=== PATIENT | female | born 2000 | race Caucasian/White ===

== ENCOUNTER 2018-08-21 14:31 | Emergency (ER) | payer BC, MEDICAID ==
[~2018-08-21] VITALS: Ht 160 cm; Wt 61.4 kg
[2018-08-21 14:32] VITALS: BP 119/70
[2018-08-21] MEDS ORDERED: KEPP1SOL PO (14:39)
[2018-08-21] MEDS ORDERED: LAMO10TA PO (14:39)
[2018-08-21] MEDS ORDERED: LIDOCAINE W/EPINEPHRINE 1% 20ML VIAL SC ONE (15:45)
[2018-08-21] MEDS ORDERED: DOXY100C37 PO (15:58)
== END 2018-08-21 16:10 | disposition home or self-care (01) ==
LOC: M ED 14:31
DX: L02.214 Cutaneous abscess of groin (principal)

== ENCOUNTER 2018-09-04 16:39 | Emergency (ER) | payer BC, MEDICAID ==
[~2018-09-04] VITALS: Ht 160 cm; Wt 59.1 kg
[~2018-09-04 16:39] MED LIST: DOXY100C37 PO; KEPP1SOL PO; LAMO10TA PO
[2018-09-04 16:40] VITALS: BP 117/72
[2018-09-04] MEDS ORDERED: metroNIDAZOLE (FLAGYL) 500 MG TAB PO ONE (17:45)
--- NOTE | 2018-09-04 18:50 | REP ---
First trimester obstetric sonography: History: Vaginal bleeding. Transabdominal and transvaginal scanning are performed. There is an intrauterine gestational sac containing a yolk sac but no discernible embryonic pole. By mean sac size diameter of 9.6 mm this would correspond with a 9-pqdt-3-day gestation. No motion or cardiac motion observed. There is a 2.2 cm hypoechoic cyst in the right ovary. Right ovary measures 3.5 x 2.9 x 3.1 cm. Left ovarian dimensions are 3.4 x 1.9 x 2.0 cm. Doppler flow is normal to both ovaries, resistive indices are 0.52 on the right and 0.70 on the left. Impression: Intrauterine gestational sac with yolk sac but no embryonic pole. viability cannot be confirmed. Clinical and possibly sonographic followup is recommended. 0-duwv-3-day size by sac size diameter. No free fluid or adnexal mass. Electronically Signed by Amado Sim MD 09/04/2018 06:58 P
[2018-09-04] MEDS ORDERED: CEPH500T PO (19:23)
[2018-09-04] MEDS ORDERED: KEFL500C17 PO (19:23)
[2018-09-04] MEDS ORDERED: METR-201 PO (19:23)
[2018-09-04] MEDS ORDERED: CEPHALEXIN 500 MG CAP PO ONE (19:30)
[2018-09-04 20:02] LABS: CHLAMYDIA DNA AMPLIFICATION POSITIVE (NEGATIVE); GC DNA AMPLIFICATION NEGATIVE (NEGATIVE)
== END 2018-09-04 19:46 | disposition home or self-care (01) ==
LOC: M ED 16:39
DX: O20.0 Threatened abortion (principal); O23.41 Unspecified infection of urinary tract in pregnancy, first trimester; O99.331 Smoking (tobacco) complicating pregnancy, first trimester; F17.200 Nicotine dependence, unspecified, uncomplicated; Z3A.01 Less than 8 weeks gestation of pregnancy; Z86.69 Personal history of other diseases of the nervous system and sense organs; Z88.0 Allergy status to penicillin; Z88.2 Allergy status to sulfonamides; Z88.1 Allergy status to other antibiotic agents; Z79.899 Other long term (current) drug therapy

== ENCOUNTER 2018-09-09 19:16 | Emergency (ER) | payer BC, MEDICAID ==
[~2018-09-09] VITALS: Ht 160 cm; Wt 61.4 kg
[~2018-09-09 19:16] MED LIST changes: +CEPH500T PO; +KEFL500C17 PO; +METR-201 PO
[2018-09-09] MEDS ORDERED: NORCOTAB PO (21:40)
[2018-09-09] MEDS ORDERED: CLEO300C2 PO (21:40)
[2018-09-09] MEDS ORDERED: NORCO 5/325MG TABLET (BULK FOR ED) PO ONE (21:45)
[2018-09-09] MEDS ORDERED: CLINDAMYCIN 150 MG CAP PO ONE (21:45)
[2018-09-09 21:52] VITALS: BP 106/55
== END 2018-09-09 22:23 | disposition home or self-care (01) ==
LOC: M ED 19:16
DX: L02.415 Cutaneous abscess of right lower limb (principal); Z88.0 Allergy status to penicillin; Z88.2 Allergy status to sulfonamides; Z79.899 Other long term (current) drug therapy

== ENCOUNTER 2018-09-16 12:14 | Emergency (ER) | payer BC, MEDICAID ==
[~2018-09-16] VITALS: Ht 160 cm; Wt 60.3 kg
[~2018-09-16 12:14] MED LIST changes: +CLEO300C2 PO; +NORCOTAB PO
[2018-09-16 13:02] LABS: BASO # 0.1 10^3/uL (0.0-0.2); BASO % 0.7 % (0.0-1.0); EOS # 0.1 10^3/uL (0.0-0.50); LYMPH # 2.9 10^3/uL (1.5-6.5); LYMPH % 23.7 % (24.0-44.0); MEAN CORPUSCULAR HEMOGLOBIN 28.3 pg (27.0-33.0); MEAN CORPUSCULAR HGB CONC 31.8 g/dl (32.0-36.5); MEAN CORPUSCULAR VOLUME 89.1 fl (80.0-96.0); MONO # 0.7 10^3/uL (0.0-0.8); MONO % 5.5 % (0.0-5.0); NEUTROPHILS # 8.3 10^3/uL (1.8-7.7); NEUTROPHILS % 68.4 % (36.0-66.0); PLATELET COUNT, AUTOMATED 321 10^3/uL (150-450); RED BLOOD COUNT 4.94 10^6/uL (4.00-5.40); WHITE BLOOD COUNT 12.1 10^3/uL (4.0-10.0)
[2018-09-16] MEDS ORDERED: AZITHROMYCIN 250 MG TAB PO ONE (13:15)
[2018-09-16] MEDS ORDERED: ONDANSETRON 4 MG ORAL DISINTEGRATING TAB (Q0162 PER 1MG) PO ONE (13:15)
--- NOTE | 2018-09-16 13:49 | REP ---
Clinical: Cramping. Dating and viability. Technique: Transabdominal first trimester obstetrical ultrasound with color Doppler evaluation. Findings: Single live early intrauterine is appreciated. Gestational sac with yolk sac and pole identified. [place]-rump length of 11 mm corresponds to 7 weeks 2 days gestational age with estimated date of delivery 05/03/2019 . heart rate equals 133 beats per minute. No gross abnormalities are identified. Maternal ovaries are normal in appearance and vascularity without torsion. Right corpus luteal cyst noted. Impression: Single live early intrauterine at 7 weeks 2 days gestational age. Complete anatomical assessment should be performed and 19-20 weeks. Electronically Signed by Rosendo Whitaker MD 09/16/2018 01:40 P
[2018-09-16 14:06] LABS: BLOOD UREA NITROGEN 6 MG/DL (7-18); CALCIUM LEVEL 9.1 MG/DL (8.5-10.1); CARBON DIOXIDE LEVEL 26 MEQ/L (21-32); CHLORIDE LEVEL 105 MEQ/L (98-107); CREATININE FOR GFR 0.55 MG/DL (0.55-1.30); GLUCOSE, FASTING 104 MG/DL (70-100); HCG, SERUM QUANTITATIVE 74752 MIU/ML; POTASSIUM SERUM 4.4 MEQ/L (3.5-5.1); SODIUM LEVEL 138 MEQ/L (136-145)
[2018-09-16 14:22] VITALS: BP 106/60
[2018-09-16] MEDS ORDERED: COMPCHW PO (14:27)
[2018-09-16 14:43] LABS: CHLAMYDIA DNA AMPLIFICATION POSITIVE (NEGATIVE); GC DNA AMPLIFICATION NEGATIVE (NEGATIVE)
== END 2018-09-16 14:44 | disposition home or self-care (01) ==
LOC: M ED 12:14
DX: O98.311 Other infections with a predominantly sexual mode of transmission complicating pregnancy, first trimester (principal); A56.09 Other chlamydial infection of lower genitourinary tract; Z3A.01 Less than 8 weeks gestation of pregnancy; Z88.0 Allergy status to penicillin; Z88.1 Allergy status to other antibiotic agents; Z88.2 Allergy status to sulfonamides; Z88.8 Allergy status to other drugs, medicaments and biological substances; F17.210 Nicotine dependence, cigarettes, uncomplicated
CPT/HCPCS: 36415; 76801; 80048; 84702; 85025; 86900; 86901; 87210; 87491; 87591; 99283; Q0162

== ENCOUNTER 2018-10-06 14:51 | Emergency (ER) | payer BC ==
[~2018-10-06] VITALS: Ht 160 cm; Wt 61.4 kg
[~2018-10-06 14:51] MED LIST changes: +COMPCHW PO
[2018-10-06 16:17] VITALS: BP 118/67
[2018-10-11 10:15] LABS: LAMOTRIGINE (LAMICTAL) 3.8 ug/mL (2.0-20.0); LEVETIRACETAM (KEPPRA) 8.9 ug/mL (10.0-40.0)
== END 2018-10-06 16:19 | disposition home or self-care (01) ==
LOC: M ED 14:51
DX: O99.351 Diseases of the nervous system complicating pregnancy, first trimester (principal); G40.909 Epilepsy, unspecified, not intractable, without status epilepticus; O99.331 Smoking (tobacco) complicating pregnancy, first trimester; F17.210 Nicotine dependence, cigarettes, uncomplicated; Z3A.10 10 weeks gestation of pregnancy; Z88.1 Allergy status to other antibiotic agents; Z88.2 Allergy status to sulfonamides; Z79.899 Other long term (current) drug therapy

== ENCOUNTER → 2018-10-12 | Outpatient (CLI) | payer BC, MEDICAID ==
[2018-10-12 18:21] LABS: BASO # 0.1 10^3/uL (0.0-0.2); BASO % 0.5 % (0.0-1.0); EOS # 0.1 10^3/uL (0.0-0.50); EOS % 0.8 % (0.0-3.0); HEMATOCRIT 39.1 % (36.0-47.0); HEMOGLOBIN 12.9 g/dl (12.0-15.5); LYMPH % 18.5 % (24.0-44.0); MEAN CORPUSCULAR HEMOGLOBIN 29.5 pg (27.0-33.0); MEAN CORPUSCULAR VOLUME 89.5 fl (80.0-96.0); MONO # 0.6 10^3/uL (0.0-0.8); MONO % 5.9 % (0.0-5.0); NEUTROPHILS % 73.7 % (36.0-66.0); PLATELET COUNT, AUTOMATED 297 10^3/uL (150-450); RED BLOOD COUNT 4.37 10^6/uL (4.00-5.40); WHITE BLOOD COUNT 10.8 10^3/uL (4.0-10.0)
[2018-10-12 20:35] LABS: CHLAMYDIA DNA AMPLIFICATION NEGATIVE (NEGATIVE); GC DNA AMPLIFICATION NEGATIVE (NEGATIVE)
[2018-10-13 10:51] LABS: HEPATITIS C VIRUS ABY INDEX < 0.0 INDEX (<0.8); HIV 1&2 SCREEN CENTAUR NEGATIVE (NEGATIVE); RUBELLA IgG QUALITATIVE IMMUNE (IMMUNE)
== END ==
LOC: M SMT 13:47
PROVIDERS: ATTEND Advanced Practice Midwife
DX: Z34.81 Encounter for supervision of other normal pregnancy, first trimester (principal); Z3A.01 Less than 8 weeks gestation of pregnancy

== ENCOUNTER → 2018-10-17 | Outpatient (CLI) | payer BC, MEDICAID | LOC: M SMT 10:26 | PROVIDERS: ATTEND Advanced Practice Midwife | DX: Z34.81 Encounter for supervision of other normal pregnancy, first trimester (principal) ==

== ENCOUNTER 2019-03-09 13:28 | Outpatient (CLI) | payer BC, MEDICAID ==
[~2019-03-09] VITALS: Ht 160 cm; Wt 70.9 kg
[~2019-03-09 13:28] MED LIST changes: +HYDR-3715 PO; +LAMO100T80 PO; -LAMO10TA PO; -METR-201 PO; +METR-265 PO; -NORCOTAB PO
[2019-03-09 16:06] VITALS: BP 105/63
--- NOTE | 2019-03-09 16:29 | IPNPDOC ---
Text Note Date of Service The patient was seen on 03/09/19. NOTE Outpatient 18yo SAW 05/02/19 by first trimester sono. Presents @ 32w2d with reports of LOF today, clear. Reports irregular cramping. Pt initiated care @ [facility] first trimester. Transferred to [facility] during 2nd trimester. They have assigned her SAW as 04/25/19 based on LMP and 2nd trimester sono. NAD Cat I tracing, no UC SSE neg pool, neg valsalva, neg nitrazine, neg fern. Moderate creamy white vaginal discharge SVE parous, LTC, out of pelvis. Chart reviewed, hx chlamydia. Will send urine for GC/CT. Sono for BPP and GOPI ordered Nishi Medarno CNM Mar 09, 2019 16:29
--- NOTE | 2019-03-09 17:31 | IPNPDOC ---
Text Note Date of Service The patient was seen on 03/09/19. NOTE BPP 03/22 GOPI 12.3 Cervical length 3.2 [address]charged home Routine precautions, keep appt next week. Nishi Medrano CNM Mar 09, 2019 17:31
--- NOTE | 2019-03-09 17:42 | REPVR ---
EXAM: US Biophysical Profile Without Non-Stress Test EXAM DATE/TIME: 03/09/2019 5:20 PM CLINICAL HISTORY: 18 years old, female; status abnormalities: ; Other: Leaking fluid; Single gestation; Third trimester (28 wks 0 days until delivery); ; Additional info: R/O srom TECHNIQUE: Imaging protocol: US biophysical profile without non-stress testing. COMPARISON: No relevant prior studies available. FINDINGS: Other findings: heart rate 141 beats per minute. Cervix measures 3.2 cm. Amniotic fluid volume index is 12.3 cm. Umbilical cord Doppler demonstrates a peak systolic velocity of 65.7 cm/s, and diastolic velocity of 28.5 cm/s, S./D. ratio 2.3 and resistive index of 0.57. Breathin/2 Gross body movements: 2/2 tone: 2/2 Qualitative amniotic fluid: 2/2 Anatomy: anatomic survey not requested or performed. IMPRESSION: Biophysical profile score 8 out of 8. Electronically signed by: Pollo Severino On 03/09/2019 17:42:40 PM
[2019-03-09 18:20] LABS: CHLAMYDIA DNA AMPLIFICATION NEGATIVE (NEGATIVE); GC DNA AMPLIFICATION NEGATIVE (NEGATIVE)
== END 2019-03-09 17:30 | disposition home or self-care (01) ==
LOC: M LDO 13:28
PROVIDERS: ATTEND Advanced Practice Midwife
DX: O26.893 Other specified pregnancy related conditions, third trimester (principal); R10.2 Pelvic and perineal pain; Z3A.32 32 weeks gestation of pregnancy; Z86.19 Personal history of other infectious and parasitic diseases
CPT/HCPCS: 59025; 76815; 76819; 76820; 87491; 87591; G0378; G0463

== ENCOUNTER 2019-09-13 10:17 | Emergency (ER) | payer BC, MEDICAID ==
[~2019-09-13] VITALS: Ht 160 cm; Wt 69.5 kg
[2019-09-13] MEDS ORDERED: LEVE100SOL (10:26)
[2019-09-13 11:35] LABS: AMPHETAMINES LEVEL URINE NEGATIVE (NEGATIVE); BARBITURATES URINE NEGATIVE (NEGATIVE); BENZODIAZEPINES URINE NEGATIVE (NEGATIVE); CANNABINOIDS URINE NEGATIVE (NEGATIVE); COCAINE METABOLITE URINE NEGATIVE (NEGATIVE); METHADONE URINE NEGATIVE (NEGATIVE); OPIATES URINE NEGATIVE (NEGATIVE); PHENCYCLIDINE URINE NEGATIVE (NEGATIVE)
[2019-09-13] MEDS ORDERED: LAMO100T80 PO (12:37)
[2019-09-13] MEDS ORDERED: KEPP1SOL PO (12:39)
[2019-09-13 13:05] VITALS: BP 109/63
[2019-09-17 14:09] LABS: LAMOTRIGINE (LAMICTAL) 12.4 ug/mL (2.0-20.0); LEVETIRACETAM (KEPPRA) 30.6 ug/mL (10.0-40.0)
== END 2019-09-13 13:07 | disposition home or self-care (01) ==
LOC: M ED 10:17
DX: G40.909 Epilepsy, unspecified, not intractable, without status epilepticus (principal); Z79.899 Other long term (current) drug therapy; Z88.0 Allergy status to penicillin; Z88.1 Allergy status to other antibiotic agents; Z88.2 Allergy status to sulfonamides; Z88.8 Allergy status to other drugs, medicaments and biological substances; Z91.040 Latex allergy status; Z91.048 Other nonmedicinal substance allergy status; F17.210 Nicotine dependence, cigarettes, uncomplicated

== ENCOUNTER 2019-10-21 18:54 | Emergency (ER) | payer BC, OTHER, MEDICAID ==
[~2019-10-21] VITALS: Ht 160 cm; Wt 70.5 kg
[~2019-10-21 18:54] MED LIST changes: +LEVE100SOL
[2019-10-21] MEDS ORDERED: NS 1,000 ML IV ONE (19:45)
[2019-10-21 19:57] LABS: URINE PREG TEST POSITIVE (NEGATIVE)
[2019-10-21 19:58] LABS: APPEARANCE, URINE HAZY (CLEAR); BACTERIA, URINE AUTO 1+ (NEGATIVE); BILIRUBIN, URINE AUTO NEGATIVE (NEGATIVE); BLOOD, URINE BLOOD NEGATIVE (NEGATIVE); COLOR, URINE YELLOW (YELLOW); GLUCOSE, URINE (UA) AUTO NEGATIVE (NEGATIVE); KETONE, URINE AUTO NEGATIVE (NEGATIVE); LEUKOCYTE ESTERASE, URINE AUTO NEGATIVE (NEGATIVE); MUCUS, URINE SMALL (NEGATIVE); NITRITE, URINE AUTO NEGATIVE (NEGATIVE); PROTEIN, URINE AUTO NEGATIVE (NEGATIVE); RBC, URINE AUTO 1 /HPF (0-3); SPECIFIC GRAVITY URINE AUTO 1.011 (1.002-1.035); SQUAMOUS EPITHELIAL CELL UR AU 7 /HPF (0-6); UROBILINOGEN, URINE AUTO 0.2 mg/dL (0.0-2.0); WBC, URINE AUTO 2 /HPF (0-3)
[2019-10-21 20:02] LABS: BASO # 0.1 10^3/uL (0.0-0.2); BASO % 0.9 % (0.0-1.0); EOS # 0.2 10^3/uL (0.0-0.5); EOS % 2.4 % (0.0-3.0); HEMATOCRIT 39.3 % (36.0-47.0); HEMOGLOBIN 12.4 g/dl (12.0-15.5); LYMPH # 3.5 10^3/uL (1.5-5.0); LYMPH % 37.6 % (24.0-44.0); MEAN CORPUSCULAR HEMOGLOBIN 27.6 pg (27.0-33.0); MEAN CORPUSCULAR HGB CONC 31.6 g/dl (32.0-36.5); MEAN CORPUSCULAR VOLUME 87.3 fl (80.0-96.0); MONO # 0.6 10^3/uL (0.0-0.8); MONO % 6.8 % (0.0-5.0); NEUTROPHILS # 4.7 10^3/uL (1.5-8.5); NEUTROPHILS % 51.6 % (36.0-66.0); PLATELET COUNT, AUTOMATED 387 10^3/uL (150-450); WHITE BLOOD COUNT 9.2 10^3/uL (4.0-10.0)
[2019-10-21 20:38] LABS: ALBUMIN 3.7 GM/DL (3.2-5.2); ALT/SGPT 82 U/L (12-78); BILIRUBIN,DIRECT < 0.1 MG/DL (0.0-0.2); BILIRUBIN,TOTAL 0.1 MG/DL (0.2-1.0); HCG, SERUM QUANTITATIVE 10236 MIU/ML; LIPASE 66 U/L (73-393)
--- NOTE | 2019-10-21 20:59 | REPVR ---
PROCEDURE INFORMATION: Exam: US First Trimester, Transabdominal Exam date and time: 10/21/2019 8:22 PM Age: 19 years old Clinical indication: complicated by abdominal or pelvic pain; Lower; First trimester; Gestational age or lmp: 6w4d; ; Additional info: Abd/back pain, positive , R/O ectopic TECHNIQUE: Imaging protocol: Real-time transabdominal obstetrical ultrasound of the maternal pelvis and a first trimester , less than 14 weeks 0 days, with image documentation. COMPARISON: No relevant prior studies available. FINDINGS: Well defined endometrial fluid collection suggests early gestational sac. Mean sac diameter is 12 mm. No evidence of implantational hemorrhage. Yolk sac is present. No identifiable pole at this point. Right ovary measures 3.5 x 2.5 x 3.3 cm and demonstrates normal Doppler flow. Left ovary measures 3.3 x 1.6 x 3.3 cm and demonstrates normal Doppler flow. Right ovary demonstrates a 2 cm corpus luteum cyst No abnormal volume of free pelvic fluid and no abnormal adnexal mass. IMPRESSION: Probable early intrauterine at 6 weeks estimated gestational age. No pole is identified at this point. Follow-up with repeat ultrasound and serial beta-hCG measurements is recommended, as indicated clinically. No ancillary evidence of ectopic . Electronically signed by: Nirmal Murrieta On 10/21/2019 20:58:45 PM
[2019-10-21 21:52] VITALS: BP 111/57
== END 2019-10-21 22:02 | disposition home or self-care (01) ==
LOC: M ED 18:54
DX: O26.891 Other specified pregnancy related conditions, first trimester (principal); R10.9 Unspecified abdominal pain; R56.9 Unspecified convulsions; Z79.899 Other long term (current) drug therapy; Z88.0 Allergy status to penicillin; Z88.1 Allergy status to other antibiotic agents; Z88.2 Allergy status to sulfonamides; Z88.8 Allergy status to other drugs, medicaments and biological substances; Z91.040 Latex allergy status; Z91.048 Other nonmedicinal substance allergy status; O99.331 Smoking (tobacco) complicating pregnancy, first trimester; Z3A.00 Weeks of gestation of pregnancy not specified

== ENCOUNTER → 2019-11-03 | Outpatient (CLI) | payer BC, MEDICAID | LOC: M LABSMTC 12:18 | PROVIDERS: ATTEND Family Medicine | DX: Z11.59 Encounter for screening for other viral diseases (principal); Z20.828 Contact with and (suspected) exposure to other viral communicable diseases | CPT/HCPCS: 87486; 87581; 87633; 87798; U0002 ==

== ENCOUNTER 2019-11-09 22:17 | Emergency (ER) | payer BC, MEDICAID ==
[~2019-11-09] VITALS: Ht 160 cm; Wt 69.1 kg
--- NOTE | 2019-11-09 23:13 | REPVR ---
PROCEDURE INFORMATION: Exam: US First Trimester, Transabdominal Exam date and time: 11/09/2019 11:03 PM Age: 19 years old Clinical indication: complicated by abdominal or pelvic pain; Lower; First trimester; Gestational age or lmp: 8w 0d; ; Additional info: Vaginal bleeding TECHNIQUE: Imaging protocol: Real-time transabdominal obstetrical ultrasound of the maternal pelvis and a first trimester , less than 14 weeks 0 days, with image documentation. COMPARISON: 1ST TRIMESTER US 10/21/2019 8:10 PM FINDINGS: GESTATION: Gestation: Single living intrauterine . No subchorionic hemorrhage. Heart rate: 165 bpm. Placenta: No subchorionic bleed. Amniotic fluid: Amniotic and coelomic fluid are normal for gestational age. BIOMETRY: Estimated gestational age: Eight weeks 1 day. [place]-Rump length: [place]-rump length measures 16 mm. Estimated due date: 06/11/2020 MATERNAL: Uterus: Unremarkable. Cervix: Unremarkable. Right adnexa: Unremarkable. Left adnexa: Unremarkable. Intraperitoneal: No intraperitoneal free fluid. IMPRESSION: 1. Single living intrauterine . Estimated gestational age is 8 weeks 1 day. 2. No abnormalities are seen. Electronically signed by: Reji Arias On 11/09/2019 23:12:42 PM
[2019-11-09 23:15] LABS: BASO # 0.1 10^3/uL (0.0-0.2); EOS # 0.2 10^3/uL (0.0-0.5); EOS % 1.6 % (0.0-3.0); HEMATOCRIT 38.2 % (36.0-47.0); HEMOGLOBIN 12.2 g/dl (12.0-15.5); LYMPH # 3.2 10^3/uL (1.5-5.0); LYMPH % 34.8 % (24.0-44.0); MEAN CORPUSCULAR HGB CONC 31.9 g/dl (32.0-36.5); MEAN CORPUSCULAR VOLUME 87.6 fl (80.0-96.0); MONO # 0.5 10^3/uL (0.0-0.8); MONO % 5.7 % (0.0-5.0); NEUTROPHILS # 5.2 10^3/uL (1.5-8.5); NEUTROPHILS % 56.4 % (36.0-66.0); PLATELET COUNT, AUTOMATED 312 10^3/uL (150-450); RED BLOOD COUNT 4.36 10^6/uL (4.00-5.40); WHITE BLOOD COUNT 9.3 10^3/uL (4.0-10.0)
[2019-11-09 23:18] LABS: APPEARANCE, URINE CLEAR (CLEAR); BACTERIA, URINE AUTO 1+ (NEGATIVE); BILIRUBIN, URINE AUTO NEGATIVE (NEGATIVE); BLOOD, URINE BLOOD 2+ (NEGATIVE); COLOR, URINE STRAW (YELLOW); GLUCOSE, URINE (UA) AUTO NEGATIVE (NEGATIVE); KETONE, URINE AUTO NEGATIVE (NEGATIVE); LEUKOCYTE ESTERASE, URINE AUTO NEGATIVE (NEGATIVE); MUCUS, URINE SMALL (NEGATIVE); NITRITE, URINE AUTO NEGATIVE (NEGATIVE); PROTEIN, URINE AUTO NEGATIVE (NEGATIVE); RBC, URINE AUTO 2 /HPF (0-3); SPECIFIC GRAVITY URINE AUTO 1.009 (1.002-1.035); SQUAMOUS EPITHELIAL CELL UR AU 3 /HPF (0-6); UROBILINOGEN, URINE AUTO 0.2 mg/dL (0.0-2.0); WBC, URINE AUTO 1 /HPF (0-3)
[2019-11-10 00:06] VITALS: BP 113/59
== END 2019-11-10 00:08 | disposition home or self-care (01) ==
LOC: M ED 22:17
DX: O20.0 Threatened abortion (principal); R56.9 Unspecified convulsions; Z3A.08 8 weeks gestation of pregnancy; Z88.0 Allergy status to penicillin; Z88.1 Allergy status to other antibiotic agents; Z88.2 Allergy status to sulfonamides; Z88.8 Allergy status to other drugs, medicaments and biological substances; Z91.040 Latex allergy status; Z91.048 Other nonmedicinal substance allergy status